=== PATIENT | male | born 1985 | race Hispanic/Latino ===

== ENCOUNTER 2017-10-01 17:01 | Emergency (ER) | payer OTHER ==
[~2017-10-01] VITALS: Ht 157.5 cm; Wt 65.9 kg
[~2017-10-01 17:01] MED LIST: ERYTHROMYC1 APPLICAT BOTH EYES
[2017-10-01 18:43] LABS: BASOPHIL (%) 0.4 % (0-1); EOSINOPHIL (%) 1.1 % (0-5); EOSINOPHIL COUNT 0.1 K/uL (0-0.3); HEMATOCRIT 41.9 % (38.0-50.0); HEMOGLOBIN 14.2 G/DL (12.5-16.6); IMMATURE GRANULOCYTE (%) 0.3 % (0.0-0.7); LYMPHOCYTE (%) 30.7 % (15-42); LYMPHOCYTE COUNT 2.4 K/uL (1.0-2.8); MCH 31.3 PG (29.0-34.0); MCHC 33.9 G/DL (30.0-36.0); MCV 92.5 FL (86-99); MONOCYTE (%) 6.8 % (3-12); MONOCYTE COUNT 0.5 K/uL (0-0.8); NEUTROPHIL (%) 60.7 % (45-76); NEUTROPHIL COUNT 4.8 K/uL (1.8-6.4); PLATELET COUNT 187 K/uL (156-360); RBC DIS.WIDTH-CV 13.3 % (11.8-14.6); RBC DIS.WIDTH-SD 45.6 % (39-53); RED BLOOD COUNT 4.53 M/uL (4.00-5.50)
[2017-10-01 18:52] LABS: ALBUMIN 3.9 g/dL (3.2-4.8); CHLORIDE 104 mEq/L (99-109); POTASSIUM 3.6 mEq/L (3.7-5.4); SODIUM 137 mEq/L (136-147)
[2017-10-01 18:55] LABS: GLUCOSE 89 mg/dL (70-99); TOTAL PROTEIN 6.6 g/dL (6.4-8.3)
[2017-10-01 18:57] LABS: TOTAL BILIRUBIN 0.3 mg/dL (0.0-1.0)
[2017-10-01 18:58] LABS: ALKALINE PHOSPHATASE 62 IU/L (3-129); GFR ESTIMATE (CALCULATED) > 59 mL/min/ (58.99-99999); SERUM ETHYL ALCOHOL < 10 mg/dL
[2017-10-01 19:00] LABS: AST (GOT) 15 IU/L (2-34); UREA NITROGEN (BUN) 12 mg/dL (9-23)
[2017-10-01 19:01] LABS: ALT (GPT) 16 IU/L (3-49)
[2017-10-01 19:16] LABS: AMPHETAMINE NEGATIVE (500 ng/mL); BARBITURATES NEGATIVE (200 ng/mL); BENZODIAZEPINES NEGATIVE (150 ng/mL); BUPRENORPHINE NEGATIVE (10 ng/mL); COCAINE NEGATIVE (150 ng/mL); METHADONE NEGATIVE (200 ng/mL); METHAMPHETAMINE NEGATIVE (500 ng/mL); OPIATES (MORPHINE) NEGATIVE (100 ng/mL); OXYCODONE NEGATIVE (100 ng/mL); PHENCYCLIDINE NEGATIVE (25 ng/mL); PROPOXYPHENE NEGATIVE (300 ng/mL); THC CANNABINOIDS NEGATIVE (50 ng/mL); TRICYCLIC ANTIDEPRESSANTS NEGATIVE (300 ng/mL)
[2017-10-01] MEDS ORDERED: DESYREL100 MG PO (20:32)
[2017-10-01] MEDS ORDERED: LEXAPRO10 MG PO (20:32)
[2017-10-01 21:39] VITALS: BP 126/83
== END 2017-10-01 21:41 | disposition home or self-care (01) ==
LOC: EME 17:01
PROVIDERS: Emergency Medicine
DX: F43.23 Adjustment disorder with mixed anxiety and depressed mood (principal); Z04.6 Encounter for general psychiatric examination, requested by authority; F17.200 Nicotine dependence, unspecified, uncomplicated
CPT/HCPCS: 80053; 85025; 99281; 99285; G0480

== ENCOUNTER 2017-10-01 23:01 | Inpatient (IN) | payer OTHER ==
[~2017-10-01] VITALS: Ht 157.5 cm; Wt 70.5 kg
[~2017-10-01 23:01] MED LIST changes: +DESYREL100 MG PO; +LEXAPRO10 MG PO
[2017-10-02 04:36] VITALS: BP 105/68
[2017-10-02 07:06] VITALS: BP 115/58
[2017-10-02 15:22] VITALS: BP 107/65
[2017-10-03 07:36] VITALS: BP 86/53
[2017-10-03 11:51] VITALS: BP 105/57
[2017-10-03 15:14] VITALS: BP 115/59
[2017-10-04 07:30] VITALS: BP 100/59
[2017-10-04] MEDS ORDERED: LEXAPRO10 MG PO (09:03)
[2017-10-04] MEDS ORDERED: TRAZODONE HCL50 MG PO (09:03)
== END 2017-10-04 10:28 | disposition home or self-care (01) | DRG 882 ==
LOC: EME 23:01 → 1WEST 10-02 00:01 → EDOF 10-02 00:01 → 1WEST 10-02 00:01 → EDOF 10-02 01:21 → 1WEST 10-02 01:23
DX: F43.25 Adjustment disorder with mixed disturbance of emotions and conduct (principal); F32.9 Major depressive disorder, single episode, unspecified; R45.851 Suicidal ideations; F17.210 Nicotine dependence, cigarettes, uncomplicated
CPT/HCPCS: 90837; 90839; 97150 GO; 97165 GO; 99281; 99285; Q0177

== ENCOUNTER 2017-10-16 04:59 | Emergency (ER) | payer OTHER ==
[~2017-10-16] VITALS: Ht 157.5 cm; Wt 67.7 kg
[~2017-10-16 04:59] MED LIST changes: +TRAZODONE HCL50 MG PO
[2017-10-16 05:03] VITALS: BP 109/84
== END 2017-10-16 08:29 | disposition left against medical advice (07) ==
LOC: EME 04:59
DX: Z53.21 Procedure and treatment not carried out due to patient leaving prior to being seen by health care provider (principal)